=== PATIENT | male | born 1985 | race Caucasian/White ===

== ENCOUNTER 2017-10-15 10:36 | Emergency (ER) | payer OTHER ==
[~2017-10-15] VITALS: Ht 193 cm; Wt 110.0 kg
[~2017-10-15 10:36] MED LIST: AMOX875T PO
[2017-10-15 10:49] VITALS: BP 112/56; PULSE 80; RESP 16; TEMP 98.8; O2SAT 98
[2017-10-15] MEDS ORDERED: antibiotic PO (10:56)
[2017-10-15] MEDS ORDERED: VENTAER INH (11:16)
[2017-10-15] MEDS ORDERED: GUAI10TA PO (11:16)
[2017-10-15] MEDS ORDERED: PRED10PA2 PO (11:16)
--- NOTE | 2017-10-15 11:20 | PD ---
HPI . Chest pain with breathing Chief Complaint: Cold / Flu Symptoms Time Seen by Provider: 11:15 Travel History International Travel<30 days: No Contact w/Intl Traveler<30days: No Traveled to known affect area: No History of Present Illness HPI This patient presents with a chief complaint of chest pain with breathing for the last several weeks. He then developed a cough and fever a few days ago. He admits to smoking but states that he's never had any problems with asthma or emphysema. He has noted no modifying factors. His symptoms have been mild. PFSH Past Medical History Diminished Hearing: No Integumentary: Yes Immunizations Current: Yes Tetanus Vaccination: > 5 Years Influenza Vaccination: No Past Surgical History Surgical History: No Previous Surgery Social History Alcohol Use: No Tobacco Use: Yes (07/05 PPD) Substance Use: No Allergies-Medications (Allergen,Severity, Reaction): Coded Allergies: No Known Allergies (Verified Adverse Reaction, Unknown, 10/15/17) Reported Meds & Prescriptions Reported Meds & Active Scripts Active Guaifenesin ER 12 HR (Guaifenesin) 1,200 Mg Sarah 1,200 Mg PO BID Ventolin Hfa 18 GM Inh (Albuterol Sulfate) 90 Mcg/Act Aer 2 Puff INH Q4H PRN Prednisone (48) 10 mg tab Dose Pack (Prednisone) 10 Mg Dspk 10 Mg PO DIRECTED Reported [antibiotic] 1 Tab PO BID Review of Systems Except as stated in HPI: all other systems reviewed are Neg General / Constitutional: Positive: Fever, Chills Cardiovascular: Positive: Chest Pain or Discomfort Respiratory: Positive: Cough, Shortness of Breath Physical Exam Narrative GENERAL: Awake and alert and in no acute distress. SKIN: Warm and dry. Normal color and turgor. HEAD: Normocephalic/atraumatic. EYES: Pupils are equal. Extraocular movements are intact. NECK: Normal range of motion. CARDIOVASCULAR: Regular rate and rhythm. RESPIRATORY: Nonlabored respirations. Lungs have good air movement throughout but diffuse coarse expiratory wheezing. MUSCULOSKELETAL: Atraumatic. NEUROLOGICAL: Nonfocal. PSYCHIATRIC: Appropriate mood and affect. Data Data Last Documented VS Vital Signs Date Time Temp Pulse Resp B/P (MAP) Pulse Ox O2 Delivery O2 Flow Rate FiO2 10/15/17 10:49 98.8 80 16 112/56 (74) 98 Orders Orders Ed Discharge Order (10/15/17 11:17) MDM Medical Decision Making Medical Screen Exam Complete: Yes Emergency Medical Condition: Yes Differential Diagnosis Differential diagnosis includes but is not limited to viral respiratory illness , bronchitis, pneumonia, allergies, CHF, asthma/COPD. Narrative Course This patient presents with cough and fever associated with chest discomfort especially with deep respirations. He has bronchospasm on exam. He will be discharged home with prescriptions for prednisone, albuterol and guaifenesin. Diagnosis Primary Impression: Bronchospasm Patient Instructions: General Instructions Departure Forms: Tests/Procedures Scripts Guaifenesin ER 12 HR (Guaifenesin ER 12 HR) 1,200 Mg Sarah 1200 MG PO BID for Chest Congestion/Cough, #60 TAB 0 Refills Prov: Yuliana Spring MD 10/15/17 Albuterol 18 GM Inh (Ventolin Hfa 18 GM Inh) 90 Mcg/Act Aer 2 PUFF INH Q4H Y for SHORTNESS OF BREATH, #1 INHALER 0 Refills Prov: Yuliana Spring MD 10/15/17 Prednisone (48) 10 mg tab Dose Pack (Prednisone (48) 10 mg tab Dose Pack) 10 Mg Dspk 10 MG PO DIRECTED for Inflammation, #1 DSPK 0 Refills Prov: Yuliana Spring MD 10/15/17 Disposition: 01 DISCHARGE HOME Condition: Stable Yuliana Spring MD Oct 15, 2017 11:20
== END 2017-10-15 11:25 | disposition home or self-care (01) ==
LOC: PHEFT 10:36
DX: J98.01 Acute bronchospasm (principal); R05 Cough; R50.9 Fever, unspecified; F17.200 Nicotine dependence, unspecified, uncomplicated
CPT/HCPCS: 99283